=== PATIENT | male | born 2000 | race Caucasian/White ===

== ENCOUNTER 2024-06-12 22:24 | Emergency (ER) | payer SELFPAY ==
[~2024-06-12] VITALS: Ht 167.6 cm; Wt 97.5 kg
[2024-06-12] MEDS ORDERED: KETOROLAC TROMETHAMINE 15 MG/ML VIAL ONE (22:42)
[2024-06-12] MEDS: KETOROLAC TROMETHAMINE 15 MG/ML VIAL IV ONE (22:54)
[2024-06-12 23:01] LABS: BASOPHILS # (AUTO) 0.1 K/uL (0.0-0.2); BASOPHILS % (AUTO) 0.9 % (0.0-2.0); EOSINOPHILS # (AUTO) 0.1 K/uL (0.0-0.7); EOSINOPHILS % (AUTO) 1.1 % (0.0-6.0); HEMATOCRIT 41 % (39-51); HEMOGLOBIN 13.8 g/dL (13.5-17.5); LYMPHOCYTES # (AUTO) 3.6 K/uL (0.8-4.8); MEAN CORPUSCULAR HEMOGLOBIN 28 PG (26.0-33.0); MEAN CORPUSCULAR HGB CONC 34 g/dl (31.0-36.0); MEAN CORPUSCULAR VOLUME 82 fL (80-96); MONOCYTES # (AUTO) 0.7 K/uL (0.1-1.30); MONOCYTES % (AUTO) 6.8 % (2.0-12.0); NEUTROPHILS % (AUTO) 57.2 % (43.0-81.0); PLATELET COUNT (AUTO) 325 K/uL (150-450); RED BLOOD CELL COUNT(AUTO) 4.99 MIL/uL (4.5-6.0); RED CELL DISTRIBUTION WIDTH 13.9 % (11.5-15.0); WHITE BLOOD COUNT (AUTO) 10.5 K/uL (4.3-11.0)
[2024-06-12 23:18] LABS: INR 0.99 (0.91-1.10); PARTIAL THROMBOPLASTIN TIME 28.3 SEC (24.3-34.3); PROTHROMBIN TIME 10.5 SECS (9.2-11.1)
[2024-06-12 23:19] LABS: CALCIUM, SERUM 8.9 mg/dL (8.5-10.1); CARBON DIOXIDE 26 mmol/L (21-32); CHLORIDE 108 mmol/L (98-107); GLUCOSE 101 mg/dL (74-106); POTASSIUM 3.8 mmol/L (3.5-5.1); SODIUM SERUM 142 mmol/L (136-145); UREA NITROGEN, BLOOD 20 mg/dL (7-18)
[2024-06-12 23:46] VITALS: BP 143/93; TEMP 98.4; O2SAT 98
== END 2024-06-12 23:47 | disposition home or self-care (01) ==
LOC: ER 22:41
DX: R07.89 Other chest pain (principal); M25.512 Pain in left shoulder; R94.31 Abnormal electrocardiogram [ECG] [EKG]; Z60.2 Problems related to living alone
CPT/HCPCS: 99285; 96374; 71045; 93005; 85025; 80048; 85378; 36415; 84484; 85730; J1885